=== PATIENT | female | born 1960 | race Caucasian/White ===

== ENCOUNTER 2020-04-04 20:26 | Emergency (ER) | payer OTHER, SELFPAY ==
--- NOTE | ~2020-04-04 | XR_ITS ---
EXAMINATION: XR knee LT 3V EXAM DATE: 04/04/2020 20:59 INDICATION: Initial encounter following injury, with pain of the left knee. TECHNIQUE: Three projections of the left knee. There is no prior study for comparison. FINDINGS: No evidence osteochondral defect or joint body in the left knee joint. There is proximal fibular healed fracture or benign appearing cortical lesion. There are no acute fractures or disloca tions identified. There is no subcutaneous gas. There is moderate-sized joint effusion. Intact le ft knee arthroplasty. IMPRESSION: 1. XR knee LT 3V exam without acute osseous findings. 2. Moderate size joint effusion. 3. Arthroplasty in expected position. 4. Benign proximal fibular finding. Reviewed, dictated and finalized at location A.
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
[2020-04-04 20:43] VITALS: BP 159/99; PULSE 93; RESP 20; TEMP 36.6; O2SAT 98
[2020-04-04 21:16] VITALS: PULSE 90; RESP 20; O2SAT 99
== END 2020-04-04 21:21 | disposition home or self-care (01) ==
PROVIDERS: Emergency Provider Emergency Medicine; PCP Family Medicine
DX: S80.12XA Contusion of left lower leg, initial encounter (principal); I10 Essential (primary) hypertension; W01.0XXA Fall on same level from slipping, tripping and stumbling without subsequent striking against object, initial encounter
CPT/HCPCS: 73562; 99283

== ENCOUNTER 2023-03-23 09:32 | Inpatient (IN) | payer OTHER, SELFPAY ==
[2023-03-23] VITALS (8 sets, daily range): BP systolic 106–122; BP diastolic 61–77; PULSE 60–100; RESP 18; TEMP 36.6–36.9; O2SAT 98–100; BMI 43.8
--- NOTE | ~2023-03-23 | XR_ITS ---
EXAMINATION: XR elbow LT min 3V DATE: 03/23/2023 10:38 INDICATION: Left elbow pain TECHNIQUE: Anteroposterior, two oblique and lateral views of the left elbow were obtained. COMPARISON: 01/06/2016 FINDINGS: Alignment is normal. No fracture or joint effusion. Joint spaces are normal. There appears to be cellulitis posteriorly overlying the distal humerus and proximal forearm. IMPRESSION: 1. Soft tissue swelling without acute osseous abnormality. Reviewed, dictated and finalized at location B.
[2023-03-23 10:33] LABS: Basophils Percent Auto 0.3 % (0.2-1.2); Eosinophils Absolute Auto 0.1 K/mm3 (0-0.3); Eosinophils Percent Auto 0.9 % (0-4.4); Hematocrit 35.8 % (37.0-47.0); Hemoglobin 11.6 g/dL (12.0-15.0); Immature Granulocyte Absolute 0.02 K/mm3 (0.00-0.031); Immature Granulocyte Percent A 0.3 % (0-0.5); Lymphocytes Absolute Auto 0.97 K/mm3 (0.9-3.2); Lymphocytes Percent Auto 13.1 % (18.3-44.2); Mean Corpuscular HGB Conc 32.4 g/dl (32-36); Mean Corpuscular Hemoglobin 30.4 pg (26-34); Mean Platelet Volume 9.9 fl (7.4-10.4); Monocytes Absolute Auto 0.7 K/mm3 (0.1-0.6); Monocytes Percent Auto 9.6 % (2.6-8.5); Neutrophils Absolute Auto 5.6 K/mm3 (1.3-6.7); Neutrophils Percent Auto 75.8 % (45.5-73.1); Platelet Count Result 264 k/mm3 (150-375); Red Blood Count 3.81 M/mm3 (4.2-5.4); Red Cell Distribution Width 12.2 % (11.5-14.5); White Blood Count 7.4 K/mm3 (4.5-10.0)
[2023-03-23 10:42] LABS: Alanine Aminotransferase 16 U/L (6-35); Albumin Level 3.8 g/dL (3.5-5.1); Alkaline Phosphatase 77 U/L (38-126); Anion Gap 8 mmol/L (8-16); Aspartate Amino Transferase 16 U/L (14-36); Bilirubin,Total 0.6 mg/dL (0.2-1.3); Blood Urea Nitrogen 24 mg/dL (7-17); Calcium 8.4 mg/dL (8.4-10.2); Carbon Dioxide 23 mmol/L (22-30); Chloride 105 mmol/L (98-107); Estimated CRCL calculation 61 ml/min; Estimated Glomerular Filt Rate 46; Glucose 97 mg/dL (65-110); Potassium 4.2 mmol/L (3.4-5.0); Sodium 136 mmol/L (137-145)
--- NOTE | 2023-03-23 11:45 | ED.UPPEXIN ---
HPI - Extremity Injury (Upper) General Chief Complaint: Extremity Injury, Upper <Nora Berkowitz PA-C - Last Filed: 03/23/23 19:22> Stated Complaint: left arm infection <Nora Berkowitz PA-C - Last Filed: 03/23/23 19:22> Time Seen by Provider: 03/23/23 11:33 <Nora Berkowitz PA-C - Last Filed: 03/23/23 19:22> Source: patient <MARGI Chapman Last Filed: 03/23/23 19:22> Mode of arrival: ambulatory <MARGI Chapman Last Filed: 03/23/23 19:22> Limitations: no limitations <MARGI Chapman Last Filed: 03/23/23 19:22> History of Present Illness HPI narrative: This is a 62-year-old female that presents to the emergency department for left elbow cellulitis. Reports worsening redness and swelling over the last 3 days despite being on Bactrim. Denies fevers, drainage, or decreased range of motion. <Nora Berkowitz PA-C - Last Filed: 03/23/23 19:22> Related Data Home Medications: Home Medications Medication Instructions Recorded Confirmed acidophilus 100 million 1 cap PO DAILY 03/23/23 03/23/23 cell-pectin, citrus 10 mg capsule amlodipine 10 mg tablet 10 mg PO DAILY 03/23/23 03/23/23 carvedilol 25 mg tablet 25 mg PO BID 03/23/23 03/23/23 cyanocobalamin (vitamin B-12) 1,000 mcg PO DAILY 03/23/23 03/23/23 1,000 mcg tablet ferrous sulfate 325 mg (65 mg 325 mg PO WEEKLY 03/23/23 03/23/23 iron) tablet meloxicam 15 mg tablet 15 mg PO HS 03/23/23 03/23/23 multivitamin with minerals-folic 1 tablet PO DAILY 03/23/23 03/23/23 acid 80 mcg chewable tablet (Centrum Adult 50 Plus) potassium chloride 20 mEq 20 meq PO DAILY 03/23/23 03/23/23 tablet,extended release sulfamethoxazole 800 1 tablet PO Q12H 03/23/23 03/23/23 mg-trimethoprim 160 mg tablet <Nora Berkowitz PA-C - Last Filed: 03/23/23 19:22> Allergies/Adverse Reactions: Allergies Allergy/AdvReac Type Severity Reaction Status Date / Time Penicillins Allergy Unknown Swelling Verified 03/23/23 11:28 <Nora Berkowitz PA-C - Last Filed: 03/23/23 19:22> Review of Systems Review of Systems: CONSTITUTIONAL: Denies fever SKIN: Reports redness and swelling MUSCULOSKELETAL: Denies joint pain, or myalgia. NEUROLOGIC: Denies numbness <Nora Berkowitz PA-C - Last Filed: 03/23/23 19:22> All systems reviewed & are unremarkable except as noted in HPI and below <Nora Berkowitz PA-C - Last Filed: 03/23/23 19:22> [facility] Past Medical History Medical History: Medical History Graves disease Hypertension Hypothyroidism <Nora Berkowitz PA-C - Last Filed: 03/23/23 19:22> Surgical History Surgical History: Surgical History History of section History of exploratory laparotomy (10/2010) Secondary to internal hernia with ischemic bowel. History of gastric bypass (2005) History of incisional hernia repair History of left knee replacement History of orthopedic surgery History of tubal ligation (2008) <Nora Berkowitz PA-C - Last Filed: 03/23/23 19:22> Family History Family History: Family History Father Hypertension Amyotrophic lateral sclerosis Mother Non-Hodgkin lymphoma <Nora Berkowitz PA-C - Last Filed: 03/23/23 19:22> Social History Social History: Social History Social History: Surrogate medical decision maker: Jessica Nuñez, daughter. Code status: Full code. Smoking status: Former smoker Tobacco type: cigarettes Alcohol intake: never Substance use: never Lack of Transportation: No Lack of Food: Never True Current Housing: I Have Housing Concerned About Future Housing: No Difficulty Paying Gas/Electric Bills: No Difficulty Paying for Meds: No Currently Unemployed: No Education: A
[2023-03-23 12:25] LABS: CRP 5.2 mg/dL (<1.0)
[2023-03-23 13:15] LABS: Erythrocyte Sedimentation Rate 70 mm/hr (0-20)
[2023-03-23] MEDS: ceFAZolin 1 GM/NS 50 ML 1 GM/50 ML BAG IVPB ×2 (13:39→21:19)
[2023-03-23] MEDS: SODIUM CHLORIDE 0.9% IV 1,000 ML 999 ML IV CONT (13:39)
--- NOTE | 2023-03-23 14:31 | PM.IMHP ---
H&P: HPI History of Present Illness Date/Time: 03/23/23 14:35 Chief Complaint: Worsening infection near left elbow. Narrative: This is a 62-year-old female with hypertension who presented to the emergency department for evaluation of a worsening infection near the left elbow. The patient provides the following history. About a week ago she noticed a small saravia just distal to the left posterior elbow. It is not unusual for her to get pimples in this area and she popped it with the expected small amount of whitish discharge. Over the next few days she developed redness, pain, and swelling about the area. Her doctor prescribed Bactrim and she has been on that for 3 days without improvement. She presents today with worsening redness and swelling. She complains of a deep aching pain in that left elbow which is worse with movement. She denies injury to the area. No history of MRSA. Interestingly she reports similar infections over the years which seems to only the fact that area. She denies fever, chills, and sweats. Review of Systems Review of Systems: Twelve systems were reviewed. Endorses a mild sore throat. No sinus congestion or cough. No nausea or vomiting. Except as documented, all other systems were reviewed and are negative. [facility] Past Medical History Medical History Graves disease Hypertension Hypothyroidism Surgical History Surgical History History of section History of exploratory laparotomy (10/2010) Secondary to internal hernia with ischemic bowel. History of gastric bypass (2005) History of incisional hernia repair History of left knee replacement History of orthopedic surgery History of tubal ligation (2008) Family History Family History Father Hypertension Amyotrophic lateral sclerosis Mother Non-Hodgkin lymphoma Social History Social History Social History: Surrogate medical decision maker: Jessica Nuñez, daughter. Code status: Full code. Smoking status: Former smoker Tobacco type: cigarettes Alcohol intake: never Substance use: never Lack of Transportation: No Lack of Food: Never True Current Housing: I Have Housing Concerned About Future Housing: No Difficulty Paying Gas/Electric Bills: No Difficulty Paying for Meds: No Currently Unemployed: No Education: Associate Degree Difficulty w/ Childcare or Family Care: No Spiritual care concerns: No Meds Home Medications and Allergies Home Medications Medication Instructions Recorded Confirmed Type acidophilus 100 million 1 cap PO DAILY 03/23/23 03/23/23 History cell-pectin, citrus 10 mg capsule amlodipine 10 mg tablet 10 mg PO DAILY 03/23/23 03/23/23 History carvedilol 25 mg tablet 25 mg PO BID 03/23/23 03/23/23 History cyanocobalamin (vitamin B-12) 1,000 mcg PO DAILY 03/23/23 03/23/23 History 1,000 mcg tablet ferrous sulfate 325 mg (65 mg 325 mg PO WEEKLY 03/23/23 03/23/23 History iron) tablet meloxicam 15 mg tablet 15 mg PO HS 03/23/23 03/23/23 History multivitamin with minerals-folic 1 tablet PO DAILY 03/23/23 03/23/23 History acid 80 mcg chewable tablet (Centrum Adult 50 Plus) potassium chloride 20 mEq 20 meq PO DAILY 03/23/23 03/23/23 History tablet,extended release sulfamethoxazole 800 1 tablet PO Q12H 03/23/23 03/23/23 History mg-trimethoprim 160 mg tablet Allergies Allergy/AdvReac Type Severity Reaction Status Date / Time Penicillins Allergy Unknown Swelling Verified 03/23/23 11:28 Vital Signs Vital Signs - 24 hr 03/23/23 09:56 03/23/23 11:25 03/23/23 13:26 Temperature 97.8 F Pulse Rate 100 66 60 Respiratory Rate 18 18 18 Blood Pressure 106/61 111/64 113/72 Pulse Oximetry 99 98 100 Oxygen Delivery Room Air Ex
--- NOTE | 2023-03-23 16:39 | PM.CNOR ---
Assessment and Plan Assessment and plan (1) Cellulitis of left elbow: Code(s): L03.114 - Cellulitis of left upper limb Status: Acute Plan Left elbow cellulitis. The bursa does not appear to be significantly involved. Interesting history of previous infections and subcutaneous scarring on the left elbow. Continue intravenous antibiotics. Limit use of the elbow and left upper extremity. Surgery is not indicated at this time. If she has recurrent problems in the future, olecranon bursectomy may be indicated. Thank you for the consultation. History of Present Illness HPI Consult date: 03/23/23 Chief complaint: Cellulitis Narrative: Pleasant [id number] 63-year-old female complains of acute pain swelling and redness in the left elbow. She had a white head that she noted. She states she has had this intermittently over the years. She developed redness. Initial treatment with Bactrim was unsuccessful. She was admitted to the emergency department. She stated in the past she had it lanced but there was no significant fluid at the bursa. Denies numbness tingling or other associated symptoms. Review of Systems Constitutional: Constitutional: Reports as per HPI and Reports no additional constitutional complaints [facility] Past Medical History Medical History Graves disease Hypertension Hypothyroidism Surgical History Surgical History History of section History of exploratory laparotomy (10/2010) Secondary to internal hernia with ischemic bowel. History of gastric bypass (2005) History of incisional hernia repair History of left knee replacement History of orthopedic surgery History of tubal ligation (2008) Family History Family History Father Hypertension Amyotrophic lateral sclerosis Mother Non-Hodgkin lymphoma Social History Social History Social History: Surrogate medical decision maker: Jessica Nuñez, daughter. Code status: Full code. Smoking status: Former smoker Tobacco type: cigarettes Alcohol intake: never Substance use: never Lack of Transportation: No Lack of Food: Never True Current Housing: I Have Housing Concerned About Future Housing: No Difficulty Paying Gas/Electric Bills: No Difficulty Paying for Meds: No Currently Unemployed: No Education: Associate Degree Difficulty w/ Childcare or Family Care: No Spiritual care concerns: No Meds Home Medications and Allergies Allergies Allergy/AdvReac Type Severity Reaction Status Date / Time Penicillins Allergy Unknown Swelling Verified 03/23/23 11:28 Vital Signs Vital Signs - 24 hr 03/23/23 09:56 03/23/23 11:25 03/23/23 13:26 Temperature 36.6 C Pulse Rate 100 66 60 Respiratory Rate 18 18 18 Blood Pressure 106/61 111/64 113/72 Pulse Oximetry 99 98 100 Oxygen Delivery Room Air 03/23/23 15:30 03/23/23 16:15 Temperature 36.8 C Pulse Rate 66 69 Respiratory Rate 18 18 Blood Pressure 122/76 106/66 Pulse Oximetry 98 100 Oxygen Delivery Exam Narrative: Obese. No distress. Alert oriented x3. Left elbow with marked redness and erythema from the posterior elbow put proximal to the mid arm. Moderate tenderness. No fluctuance or fluid collection in the bursa. Some scarring and other areas of previous superficial infection. Distal neurovascular status intact. No edema. Shoulder benign. Results Labs 03/23/23 10:23 03/23/23 10:23 Labs: Abnormal lab results 03/23/23 Range/Units 10: RBC 3.81 L (4.2-5.4) M/mm3 Hgb 11.6 L (12.0-15.0) g/dL Hct 35.8 L (37.0-47.0) % Neut % (Auto) 75.8 H (45.5-73.1) % Lymph % (Auto) 13.1 L (18.3-44.2) % Starke % (Auto) 9.6 H (2.6-8.5) % Starke # (Auto) 0.7 H
[2023-03-23] MEDS: LACTATED RINGERS 1,000 ML 100 ML IV CONT (16:51)
[2023-03-23] MEDS: carvediloL 25 MG TABLET PO (21:55)
[2023-03-23] MEDS: HYDROcodone/acetaminophen (*CRX) 5-325 MG TABLET 1 TAB PO (21:56)
[2023-03-24 05:46] VITALS: BP 111/75; PULSE 69; RESP 16; TEMP 36.6; O2SAT 98
[2023-03-24] MEDS: ceFAZolin 1 GM/NS 50 ML 1 GM/50 ML BAG IVPB ×3 (06:31→23:54)
[2023-03-24] MEDS: ACETAMINOPHEN 325 MG TABLET 650 MG PO ×2 (06:32→18:25)
[2023-03-24 07:05] LABS: Basophils Percent Auto 0.3 % (0.2-1.2); Eosinophils Absolute Auto 0.1 K/mm3 (0-0.3); Eosinophils Percent Auto 1.9 % (0-4.4); Hematocrit 35.6 % (37.0-47.0); Hemoglobin 11.4 g/dL (12.0-15.0); Immature Granulocyte Absolute 0.02 K/mm3 (0.00-0.031); Immature Granulocyte Percent A 0.3 % (0-0.5); Lymphocytes Absolute Auto 0.85 K/mm3 (0.9-3.2); Lymphocytes Percent Auto 14.6 % (18.3-44.2); Mean Corpuscular Hemoglobin 30.3 pg (26-34); Mean Corpuscular Volume 94.7 fl (80-100); Monocytes Absolute Auto 0.6 K/mm3 (0.1-0.6); Monocytes Percent Auto 9.6 % (2.6-8.5); Neutrophils Absolute Auto 4.3 K/mm3 (1.3-6.7); Neutrophils Percent Auto 73.3 % (45.5-73.1); Platelet Count Result 253 k/mm3 (150-375); Red Blood Count 3.76 M/mm3 (4.2-5.4); Red Cell Distribution Width 11.9 % (11.5-14.5); White Blood Count 5.8 K/mm3 (4.5-10.0)
[2023-03-24 07:13] LABS: Anion Gap 4 mmol/L (8-16); Blood Urea Nitrogen 14 mg/dL (7-17); Calcium 8.1 mg/dL (8.4-10.2); Carbon Dioxide 23 mmol/L (22-30); Chloride 108 mmol/L (98-107); Estimated CRCL calculation 117 ml/min; Estimated Glomerular Filt Rate > 60; Glucose 92 mg/dL (65-110); Magnesium 2.4 mg/dL (1.6-2.3); Potassium 4.1 mmol/L (3.4-5.0); Sodium 135 mmol/L (137-145)
[2023-03-24 08:17] VITALS: PULSE 73
[2023-03-24] MEDS: MULTIVITS W-FE,MIN CHEWABLE TABLET 1 TABLET PO (08:17)
[2023-03-24] MEDS: ACIDOPHILUS/BULGARICUS CHEWABLE TABLET 1 TABLET PO (08:17)
[2023-03-24] MEDS: POTASSIUM CHLORIDE 20 MEQ ER TABLET PO (08:17)
[2023-03-24] MEDS: carvediloL 25 MG TABLET PO ×2 (08:17→20:13)
[2023-03-24] MEDS: CYANOCOBALAMIN 1,000 MCG TABLET 1000 MCG PO (08:17)
[2023-03-24] MEDS: amLODIPine BESYLATE 5 MG TABLET 10 MG PO (08:17)
[2023-03-24] MEDS: MORPHINE SULFATE (*CRX) 4 MG/ML INJ IV PUSH (09:13)
--- NOTE | 2023-03-24 09:32 | PM.IMPN ---
Progress Note: A&P Assessment and Plan (1) Cellulitis of left elbow: Code(s): L03.114 - Cellulitis of left upper limb Status: Acute Assessment and Plan: Improving on IV vancomycin. No fluctuance or abscess. Suspect likely streptococcal infection. Will add Keflex to make sure patient tolerates, continue IV antibiotics today plan discharge tomorrow. (2) GERA (acute kidney injury): Code(s): N17.9 - Acute kidney failure, unspecified Status: Acute Assessment and Plan: Resolved (3) Hypertension: Qualifiers: Hypertension type: primary hypertension Qualified Code(s): I10 - Essential (primary) hypertension Code(s): I10 - Essential (primary) hypertension Status: Acute Assessment and Plan: Stable, continue home medications. Blood pressures reviewed on 03/24 Time Spent With Patient Time with patient: 25 - 35 minutes Subjective Date/time seen: 03/24/23 09:32 Interval history: 03/24: This is a 62-year-old female admitted to the hospital for recurrent left elbow cellulitis. She was evaluated by Orthopedics while in the emergency department yesterday no operations planned. She has recurrent problems with left elbow cellulitis and had a white head in this location that she picked prior to the spread of pain and erythema. She notes that the pain is still pretty significant despite [place]. She received a dose of IV morphine to help with the pain. She was on Bactrim for 3 days and was worsening so she was admitted for IV antibiotics. She is allergic to penicillins but has tolerated cephalosporins in the past. She was admitted on vancomycin and so far has responded significantly with a decrease in outlined erythema and tenderness. Review of Systems Review of Systems: All systems reviewed & are unremarkable except as noted in HPI and below Exam Narrative: General: Well-developed, nontoxic-appearing female in the semi-Weinstein position in bed in no distress. Weight: 125.7 kg. BMI: 43.4. HEENT: PERRL, EOMI. Sclera anicteric. Oral mucosa moist. Oropharynx mildly erythematous. Neck: Supple. No JVD Respiratory: Lungs are clear to auscultation bilaterally. Cardiovascular: Regular rate and rhythm with S1-S2. Gastrointestinal: Abdomen is soft, nontender, and nondistended with positive bowel sounds. No organomegaly. Skin: Warm and dry. See below. Musculoskeletal: Left elbow with several small bumps, none are open. There is surrounding erythema, induration, and warmth. No area of fluctuance noted. Erythema was initially outlined and is now contained to less than half of the outlined area Extremities: No cyanosis, clubbing, or edema. Radial and pedal pulses intact. Neurological: Alert. Cranial nerves 2-12 are grossly intact. No gross focal deficits to casual conversation. Psychiatric: Pleasant and cooperative with normal mood and affect. Judgment and insight intact. Objective Data Vital Signs Vital Signs: Vital Signs - 24 hr 03/23/23 09:56 03/23/23 11:25 03/23/23 13:26 Temperature 36.6 C Pulse Rate 100 66 60 Respiratory Rate 18 18 18 Blood Pressure 106/61 111/64 113/72 Pulse Oximetry 99 98 100 Oxygen Delivery Room Air 03/23/23 15:30 03/23/23 16:15 03/23/23 16:07 Temperature 36.8 C Pulse Rate 66 69 Respiratory Rate 18 18 Blood Pressure 122/76 106/66 Pulse Oximetry 98 100 Oxygen Delivery Room Air 03/23/23 21:08 03/23/23 21:55 03/23/23 20:00 Temperature 36.9 C Pulse Rate 65 73 Respiratory Rate 18 Blood Pressure 116/77 Pulse Oximetry 99 Oxygen Delivery Room Air 03/24/23 05:46 03/24/23 08:17 03/24/23 08:20 Temperature 36.6 C Pulse Rate 69 73 Respiratory Rate 16 Blood Pressure 111/75 Pulse Oximetry 98 Oxygen Delivery Room Air 03/23/23 16:48 Temperature 36.8 C Pulse Rate 69 Respiratory Rate Blood Pressure 106/66 Pulse Oximetry 100 Oxygen Delivery Intake/Output Intake/Output: Intake & Outp
[2023-03-24 13:52] VITALS: BP 112/63; PULSE 81; RESP 22; TEMP 36.8; O2SAT 99
[2023-03-24 20:00] VITALS: O2SAT 99
[2023-03-24 20:13] VITALS: PULSE 78
[2023-03-24] MEDS: traMADol HCL (*CRX) 50 MG TABLET PO (20:43)
[2023-03-24 22:00] VITALS: BP 94/60; PULSE 75; RESP 18; TEMP 36.6; O2SAT 96
[2023-03-25] MEDS: ACETAMINOPHEN 325 MG TABLET 650 MG PO (00:32)
[2023-03-25] MEDS: ceFAZolin 1 GM/NS 50 ML 1 GM/50 ML BAG IVPB ×3 (05:31→23:00)
[2023-03-25 06:00] VITALS: BP 134/89; PULSE 72; RESP 16; TEMP 36.4; O2SAT 99
[2023-03-25 06:13] LABS: Basophils Percent Auto 0.3 % (0.2-1.2); Eosinophils Absolute Auto 0.1 K/mm3 (0-0.3); Eosinophils Percent Auto 1.8 % (0-4.4); Hematocrit 36.2 % (37.0-47.0); Hemoglobin 11.5 g/dL (12.0-15.0); Immature Granulocyte Absolute 0.04 K/mm3 (0.00-0.031); Immature Granulocyte Percent A 0.7 % (0-0.5); Lymphocytes Absolute Auto 1.21 K/mm3 (0.9-3.2); Mean Corpuscular HGB Conc 31.8 g/dl (32-36); Mean Corpuscular Hemoglobin 30.3 pg (26-34); Mean Corpuscular Volume 95.3 fl (80-100); Mean Platelet Volume 9.9 fl (7.4-10.4); Monocytes Absolute Auto 0.7 K/mm3 (0.1-0.6); Monocytes Percent Auto 11.1 % (2.6-8.5); Neutrophils Percent Auto 66.1 % (45.5-73.1); Platelet Count Result 275 k/mm3 (150-375); Red Cell Distribution Width 11.9 % (11.5-14.5)
[2023-03-25 06:25] LABS: Albumin Level 3.4 g/dL (3.5-5.1); Anion Gap 4 mmol/L (8-16); Blood Urea Nitrogen 13 mg/dL (7-17); Calcium 8.2 mg/dL (8.4-10.2); Carbon Dioxide 25 mmol/L (22-30); Chloride 104 mmol/L (98-107); Estimated CRCL calculation 138 ml/min; Estimated Glomerular Filt Rate > 60; Glucose 98 mg/dL (65-110); Phosphorus 3.2 mg/dL (2.5-4.5); Potassium 4.1 mmol/L (3.4-5.0); Sodium 133 mmol/L (137-145)
[2023-03-25 06:42] LABS: Vancomycin Trough 11.4 ug/mL (10.0-20.0)
[2023-03-25 08:20] VITALS: PULSE 82
[2023-03-25] MEDS: ACIDOPHILUS/BULGARICUS CHEWABLE TABLET 1 TABLET PO (08:20)
[2023-03-25] MEDS: carvediloL 25 MG TABLET PO ×2 (08:20→20:18)
[2023-03-25] MEDS: amLODIPine BESYLATE 5 MG TABLET 10 MG PO (08:20)
[2023-03-25] MEDS: CYANOCOBALAMIN 1,000 MCG TABLET 1000 MCG PO (08:22)
[2023-03-25] MEDS: POTASSIUM CHLORIDE 20 MEQ ER TABLET PO (08:22)
[2023-03-25] MEDS: MULTIVITS W-FE,MIN CHEWABLE TABLET 1 TABLET PO (08:22)
--- NOTE | 2023-03-25 10:41 | PM.PNORT ---
Progress Note: A&P Assessment and Plan (1) Cellulitis of left elbow: Code(s): L03.114 - Cellulitis of left upper limb Status: Acute Plan Patient complains of a headache and increased left elbow pain. There is some sloughing of the superficial skin at the bursa. Moderate drainage. Cellulitis and erythema of the extremity is much improved. No fluctuance or fluid collection. Overall cellulitis is improving despite some skin sloughing and persistent drainage. Continue IV antibiotics. Increase the pain medication dosage to 2 tablets of 5 mg hydrocodone/acetaminophen. Subjective Subjective Date/Time Seen: 03/25/23 10:41 Objective Data Vital Signs Vital Signs: Vital Signs - 24 hr 03/24/23 13:52 03/24/23 20:13 03/24/23 20:00 Temperature 36.8 C Pulse Rate 81 78 Respiratory Rate 22 H Blood Pressure 112/63 Pulse Oximetry 99 99 Oxygen Delivery Room Air 03/24/23 22:00 03/25/23 06:00 03/25/23 08:20 Temperature 36.6 C 36.4 C Pulse Rate 75 72 82 Respiratory Rate 18 16 Blood Pressure 94/60 L 134/89 Pulse Oximetry 96 99 Oxygen Delivery Intake/Output Intake/Output: Intake & Output 03/22/23 03/23/23 03/24/23 03/25/23 23:59 23:59 23:59 23:59 Intake Total 1930 3546 436 Output Total 2100 700 Balance 1930 1446 -264 Meds/Results Medications: Active Medications Generic Name Dose Route Start Last Admin Trade Name Freq PRN Reason Stop Dose Admin Acetaminophen 650 mg 03/23/23 21:31 03/25/23 00:32 Acetaminophen 325 Mg Tablet PO 650 mg Q6H PRN Administration Mild Pain (1-3) or Fever Amlodipine Besylate 10 mg 03/24/23 09:00 03/25/23 08:20 Amlodipine Besylate 5 Mg Tablet PO 10 mg DAILY GAURAV Administration Carvedilol 25 mg 03/23/23 21:00 03/25/23 08:20 Carvedilol 25 Mg Tablet PO 25 mg Q12HR GAURAV Administration Cyanocobalamin 1,000 mcg 03/24/23 09:00 03/25/23 08:22 Cyanocobalamin 1,000 Mcg Tablet PO 1,000 mcg DAILY GAURAV Administration Cefazolin Sodium 1 gm in 50 mls @ 100 mls/hr 03/23/23 22:00 03/25/23 05:31 Ancef 1 Gm/Ns 50 Ml IVPB 100 mls/hr Q8H GAURAV Administration Vancomycin HCl 1,500 mg in 500 mls @ 250 mls/hr 03/24/23 20:00 03/25/23 08:18 Vancomycin 1,500 Mg/D5w 500 Ml IVPB 200 mls/hr Q12H GAURAV Administration Lactobacillus Acidophilus 1 tablet 03/24/23 09:00 03/25/23 08:20 Acidophilus/Bulgaricus Chewable Tablet PO 04/23/23 08:59 1 tablet DAILY GAURAV Administration Meloxicam 15 mg 03/25/23 21:00 Meloxicam 7.5 Mg Tablet PO HS [facility] Multivitamins/Minerals 1 tablet 03/24/23 09:00 03/25/23 08:22 Multivits W-Fe,Min Chewable Tablet PO 1 tablet DAILY GAURAV Administration Potassium Chloride 20 meq 03/24/23 09:00 03/25/23 08:22 Potassium Chloride 20 Meq Er Tablet PO 20 meq DAILY GAURAV Administration Radiology Results: ITS Impressions Elbow X-Ray 03/23/23 11:02 IMPRESSION: 1. Soft tissue swelling without acute osseous abnormality. Labs Labs: Laboratory Results - last 24 hr 03/25/23 05:56 WBC 6.0 RBC 3.80 L Hgb 11.5 L Hct 36.2 L MCV 95.3 MCH 30.3 MCHC 31.8 L RDW 11.9 Plt Count 275 MPV 9.9 Immature Gran % (Auto) 0.7 H Neut % (Auto) 66.1 Lymph % (Auto) 20.0 Piatt % (Auto) 11.1 H Eos % (Auto) 1.8 Baso % (Auto) 0.3 Lymph # (Auto) 1.21 Piatt # (Auto) 0.7 H Eos # (Auto) 0.1 Baso # (Auto) 0.0 Abs Immat Gran (auto) 0.04 H Absolute Neuts (auto) 4.0 Absolute Nucleated RBC 0.0 Nucleated RBC % 0.0 Sodium 133 L Potassium 4.1 Chloride 104 Carbon Dioxide 25 Anion Gap 4 L BUN 13 Creatinine 0.50 L Estim Creat Clear Calc 138 Estimated GFR > 60 Glucose 98 Calcium 8.2 L Phosphorus 3.2 Albumin 3.4 L Vancomycin Trough 11.4 AMG Follow-up Billing Hospital Follow-up Hospital Follow-up: [id number] [facility] Mod
[2023-03-25] MEDS: HYDROcodone/acetaminophen (*CRX) 5-325 MG TABLET 2 TAB PO ×2 (10:52→20:21)
--- NOTE | 2023-03-25 11:57 | PM.IMPN ---
Progress Note: A&P Assessment and Plan (1) Cellulitis of left elbow: Code(s): L03.114 - Cellulitis of left upper limb Status: Acute Assessment and Plan: 03/25: Wound culture staph aureus, pending sensitivities. Erythema improving, central punctum now draining purulence. Patient seen by Orthopedics again today. (2) GERA (acute kidney injury): Code(s): N17.9 - Acute kidney failure, unspecified Status: Acute Assessment and Plan: Resolved (3) Hypertension: Qualifiers: Hypertension type: primary hypertension Qualified Code(s): I10 - Essential (primary) hypertension Code(s): I10 - Essential (primary) hypertension Status: Acute Assessment and Plan: Stable, continue home medications. Blood pressures reviewed on 03/25 Plan 1 of 4 bottles blood culture growing gram positive cocci in clusters, unsure if this is contaminant or legitimate bloodstream infection. Wound culture growing staph aureus. Continue Ancef and vancomycin while awaiting sensitivities and blood culture finalization. Time Spent With Patient Time with patient: Greater than 35 minutes Subjective Date/time seen: 03/25/23 11:57 Interval history: 03/24: This is a 62-year-old female admitted to the hospital for recurrent left elbow cellulitis. She was evaluated by Orthopedics while in the emergency department yesterday no operations planned. She has recurrent problems with left elbow cellulitis and had a white head in this location that she picked prior to the spread of pain and erythema. She notes that the pain is still pretty significant despite Fraser. She received a dose of IV morphine to help with the pain. She was on Bactrim for 3 days and was worsening so she was admitted for IV antibiotics. She is allergic to penicillins but has tolerated cephalosporins in the past. She was admitted on vancomycin and so far has responded significantly with a decrease in outlined erythema and tenderness. 03/25: Purulent drainage noted on bandage of left elbow wound consistent with staph infection. Blood culture, 1 bottle of 4 from initial set of cultures growing gram positive cocci in clusters. Uncertain if this is contaminant or indicative of true bloodstream infection. No fevers or chills. Patient reports that pain in left elbow remains quite significant and she is requesting additional pain control. Patient reluctantly willing to stay hospitalized to treat appropriately. Review of Systems Review of Systems: All systems reviewed & are unremarkable except as noted in HPI and below Exam Narrative: General: Well-developed, nontoxic-appearing female in the semi-Weinstein position in bed in no distress. Weight: 125.7 kg. BMI: 43.4. HEENT: PERRL, EOMI. Sclera anicteric. Oral mucosa moist. Oropharynx mildly erythematous. Neck: Supple. No JVD Respiratory: Lungs are clear to auscultation bilaterally. Cardiovascular: Regular rate and rhythm with S1-S2. Gastrointestinal: Abdomen is soft, nontender, and nondistended with positive bowel sounds. No organomegaly. Skin: Warm and dry. See below. Musculoskeletal: Left elbow with several small bumps. There is surrounding erythema, induration, and warmth. No area of fluctuance noted. Erythema was initially outlined and is now contained to less than half of the outlined area. Central punctum has opened and drained some purulent drainage consistent with staph infection as wound culture shows. Extremities: No cyanosis, clubbing, or edema. Radial and pedal pulses intact. Neurological: Alert. Cranial nerves 2-12 are grossly intact. No gross focal deficits to casual conversation. Psychiatric: Pleasant and cooperative with normal mood and affect. Judgment and insight intact. Objective Data Vital Signs Vital Signs: Vital Signs - 24 hr 03/24/23 13:52 03/24/23 20:13 03/24/23 20:00 Temperature 36.8 C Pulse Rate 81 78 Respiratory Rate 22 H Blood Pressure 112/63 Pu
[2023-03-25 14:00] VITALS: BP 98/65; PULSE 65; RESP 20; TEMP 36.6; O2SAT 97
[2023-03-25 20:18] VITALS: PULSE 70
[2023-03-25] MEDS: MELOXICAM 7.5 MG TABLET 15 MG PO (20:20)
[2023-03-25 20:46] VITALS: BP 125/82; PULSE 70; RESP 18; TEMP 36.6; O2SAT 98
[2023-03-26] MEDS: HYDROcodone/acetaminophen (*CRX) 5-325 MG TABLET 2 TAB PO (05:40)
[2023-03-26 05:55] VITALS: BP 104/59; PULSE 60; RESP 18; TEMP 36.5; O2SAT 98
[2023-03-26 07:15] LABS: Basophils Percent Auto 0.8 % (0.2-1.2); Eosinophils Absolute Auto 0.2 K/mm3 (0-0.3); Hematocrit 38.2 % (37.0-47.0); Hemoglobin 12.3 g/dL (12.0-15.0); Immature Granulocyte Absolute 0.02 K/mm3 (0.00-0.031); Immature Granulocyte Percent A 0.4 % (0-0.5); Lymphocytes Absolute Auto 1.47 K/mm3 (0.9-3.2); Lymphocytes Percent Auto 29.6 % (18.3-44.2); Mean Corpuscular HGB Conc 32.2 g/dl (32-36); Mean Corpuscular Hemoglobin 30.4 pg (26-34); Mean Corpuscular Volume 94.6 fl (80-100); Mean Platelet Volume 9.9 fl (7.4-10.4); Monocytes Absolute Auto 0.5 K/mm3 (0.1-0.6); Monocytes Percent Auto 10.7 % (2.6-8.5); Neutrophils Absolute Auto 2.8 K/mm3 (1.3-6.7); Neutrophils Percent Auto 55.5 % (45.5-73.1); Platelet Count Result 308 k/mm3 (150-375); Red Blood Count 4.04 M/mm3 (4.2-5.4); Red Cell Distribution Width 11.6 % (11.5-14.5)
[2023-03-26 07:25] LABS: Albumin Level 3.7 g/dL (3.5-5.1); Anion Gap 6 mmol/L (8-16); Blood Urea Nitrogen 11 mg/dL (7-17); Calcium 8.5 mg/dL (8.4-10.2); Carbon Dioxide 29 mmol/L (22-30); Chloride 102 mmol/L (98-107); Estimated CRCL calculation 117 ml/min; Estimated Glomerular Filt Rate > 60; Glucose 105 mg/dL (65-110); Phosphorus 3.7 mg/dL (2.5-4.5); Potassium 4.3 mmol/L (3.4-5.0); Sodium 137 mmol/L (137-145)
[2023-03-26] MEDS: ceFAZolin 1 GM/NS 50 ML 1 GM/50 ML BAG IVPB (08:43)
[2023-03-26] MEDS: CYANOCOBALAMIN 1,000 MCG TABLET 1000 MCG PO (08:47)
[2023-03-26] MEDS: ACIDOPHILUS/BULGARICUS CHEWABLE TABLET 1 TABLET PO (08:47)
[2023-03-26] MEDS: carvediloL 25 MG TABLET PO (08:47)
[2023-03-26] MEDS: amLODIPine BESYLATE 5 MG TABLET 10 MG PO (08:47)
[2023-03-26] MEDS: POTASSIUM CHLORIDE 20 MEQ ER TABLET PO (08:47)
[2023-03-26] MEDS: MULTIVITS W-FE,MIN CHEWABLE TABLET 1 TABLET PO (08:47)
--- NOTE | 2023-03-26 10:55 | PM.DS ---
DS: Admitting Diagnosis Discharge Date 03/26/2023 Admitting Diagnosis cellulitis of left elbow DS: Discharge Diagnosis Discharge Diagnosis (1) Infection of wound due to methicillin resistant Staphylococcus aureus (MRSA): Code(s): A49.02 - Methicillin resistant Staphylococcus aureus infection, unspecified site Status: Acute (2) Cellulitis of left elbow: Code(s): L03.114 - Cellulitis of left upper limb Status: Acute (3) GERA (acute kidney injury): Code(s): N17.9 - Acute kidney failure, unspecified Status: Acute (4) Hypertension: Qualifiers: Hypertension type: primary hypertension Qualified Code(s): I10 - Essential (primary) hypertension Code(s): I10 - Essential (primary) hypertension Status: Acute DS: Summary Hospital Course Reason for hospitalization: patient was admitted for a large left elbow cellulitis. Hospital Course: Patient was admitted for large left elbow cellulitis. This is recurrent in nature and always happens to the same site. She gets skin pimples and then cellulitis begins to extend. Patient reports that she was started on Bactrim but the area continued to expand and cause significant pain so she was admitted to the hospital for IV antibiotics due to failure of outpatient antibiotics. Patient was seen by Orthopedics no suspicion of joint capsule infection. Patient was vancomycin significant improvement in cellulitis day 1 by date to she spontaneous drainage at the elbow site. Culture was positive for MRSA. Cellulitis has essentially resolved minor drainage present on bandaged. Patient instructed on continuing to express drainage upon discharge. She was instructed on dressing at least daily. Started doxycycline was sensitive her culture. One of 4 blood cultures was positive but this was identified as Staph hominis therefore suspected to be contamination only. Patient is afebrile. White blood cell count is Normal. Patient was admitted with slight increase in creatinine and decrease in GFR but this has subsequently resolved. This change in renal function is thought to be related to palpation Bactrim. Thus she was discharged on doxycycline instead. Status at Discharge Cognitive/behavioral status at discharge: awake alert oriented and pleasant Functional status at discharge: independent ambulation Overall status at discharge: patient is progressing back to baseline Time Spent with Patient Time attestation: Total time spent providing and/or coordinating discharge services: 40 minutes Time spent: Greater than 30 minutes Exam Narrative: General: Well-developed, nontoxic-appearing female in the semi-Weinstein position in bed in no distress. Weight: 125.7 kg. BMI: 43.4. HEENT: PERRL, EOMI. Sclera anicteric. Oral mucosa moist. Oropharynx mildly erythematous. Neck: Supple. No JVD Respiratory: Lungs are clear to auscultation bilaterally. Cardiovascular: Regular rate and rhythm with S1-S2. Gastrointestinal: Abdomen is soft, nontender, and nondistended with positive bowel sounds. No organomegaly. Skin: Warm and dry. See below. Musculoskeletal: Left elbow with several small bumps. The previously marked cellulitis has resolved slight amount drainage from central punctum on bandage, no fluctuance or unresolved abscess Extremities: No cyanosis, clubbing, or edema. Radial and pedal pulses intact. Neurological: Alert. Cranial nerves 2-12 are grossly intact. No gross focal deficits to casual conversation. Psychiatric: Pleasant and cooperative with normal mood and affect. Judgment and insight intact. DS: Data Data Completed and Pending Labs on day of discharge: Labs from last 24 hours 03/26/23 06:30 WBC 5.0 RBC 4.04 L Hgb 12.3 Hct 38.2 MCV 94.6 MCH 30.4 MCHC 32.2 RDW 11.6 Plt Count 308 MPV 9.9 Immature Gran % (Auto) 0.4 Neut % (Auto) 55.5 Lymph % (Auto) 29.6 [place] % (Auto) 10.7 H Eos % (Auto) 3.0 Baso % (Auto)
[2023-03-26 14:00] VITALS: BP 105/69; PULSE 68; RESP 18; TEMP 36.3; O2SAT 96
== END 2023-03-26 15:03 | disposition home or self-care (01) | DRG 603 ==
LOC: ANHED 11:44 → ANH3MEDSUR 15:40
PROVIDERS: Emergency Medicine; Physician Assistant; Admitting Provider Internal Medicine; Emergency Provider Physician Assistant; PCP Family Medicine; Visit Provider Nurse Practitioner
DX: L03.114 Cellulitis of left upper limb (principal); N17.9 Acute kidney failure, unspecified; B95.62 Methicillin resistant Staphylococcus aureus infection as the cause of diseases classified elsewhere; I10 Essential (primary) hypertension; E05.00 Thyrotoxicosis with diffuse goiter without thyrotoxic crisis or storm; Z98.84 Bariatric surgery status; Z96.652 Presence of left artificial knee joint; Z87.891 Personal history of nicotine dependence
CPT/HCPCS: 36415; 73080; 80048; 80053; 80069; 80202; 83735; 85025; 85652; 86140; 87040; 87070; 87147; 87181; 87186; 87205; 96361; 96365; 96366; 96367; 96375; 99285; A9270; G0378; J0690; J2270; J3370; J7030; J7120

== ENCOUNTER 2023-10-29 10:03 | Outpatient (CLI) | payer OTHER, SELFPAY ==
--- NOTE | ~2023-10-29 | US_ITS ---
US venous doppler [facility] DATE: 10/29/2023 10:32 INDICATION: Bilateral leg pain TECHNIQUE: Real-time and color flow imaging and Doppler analysis of the veins of both lower extremiti es COMPARISON: None FINDINGS: The greater saphenous veins are patent. There is spontaneous and phasic flow and normal aug mentation and color flow signal and normal compression of the deep veins of both lower extremities. IMPRESSION: No evidence of deep venous thrombosis of the lower extremities Reviewed, dictated and finalized at [facility]. Reviewed, dictated and finalized at [facility].
== END 2023-10-29 10:04 ==
PROVIDERS: PCP Family Medicine; Visit Provider Family Medicine
DX: R60.0 Localized edema (principal)
CPT/HCPCS: 93970